=== PATIENT | female | born 1995 | race Caucasian/White ===

== ENCOUNTER 2018-08-29 19:21 | Emergency (ER) | payer OTHER ==
[2018-08-29] MEDS ORDERED: NS 1,000 ML IV ONE (19:34)
[2018-08-29] MEDS ORDERED: PROMETHAZINE HCL 25 MG/ML INJ IVP ONE (19:34)
--- NOTE | 2018-08-29 19:44 | EDPHY ---
H & P Stated Complaint: lower ABD pain-diarrhea Time Seen by Provider: 08/29/18 19:34 HPI/ROS: HPI: This is a 23-year-old female who presents with Chief Complaint: lower ABD pain-diarrhea Location: Lower abdominal Quality: Pain Duration: Since this morning Signs and Symptoms: no fever, no nausea, no vomiting, no hematemesis, no blood in stool, no abdominal bloating, + diarrhea, no back pain, no urinary symptoms, no vaginal bleeding/discharge, no indigestion, no chest pain, no shortness of breath Timing: Acute, intermittent episodes Severity: [id number] Context: Patient lives by herself, presents with sudden onset of nausea and diarrhea that started evening. She reports that it continued over the weekend and into today. She reports that she is having between 2-5 loose stools per day. This evening she started to developed some lower abdominal pain that is constant, nonradiating, moderate in severity. Her menstrual period is due in 1 and half weeks. She takes oral control pills. She reports decreased appetite today. Denies fever. No recent foreign travel, antibiotic use, concern for food borne illness. No history of ovarian cyst. Denies urinary symptoms. Modifying Factors: None Comment: ROS: A comprehensive 10 system review of systems is otherwise negative aside from elements mentioned in the history of present illness. MEDICAL/SURGICAL/SOCIAL HISTORY: Medical history: Generally healthy. Does not take any regular medications. Surgical history: Denies Social history: Nonsmoker. Family history noncontributory. CONSTITUTIONAL: Extremely well-appearing young adult white female, awake and alert, no obvious distress HEENT: Atraumatic and normocephalic, PERRL, EOMI. Nares patent; no rhinorrhea; no nasal mucosal edema. Tympanic membranes clear. Oropharynx clear, no exudate and moist pink mucosa. Airway patent. No lymphadenopathy. No meningismus. Cardiovascular: Normal S1/S2, regular rate, regular rhythm, without murmur rub or gallop. PULMONARY/CHEST: Symmetrical and nontender. Clear to auscultation bilaterally. Good air movement. No accessory muscle usage. ABDOMEN: Soft, nondistended, nontender, no rebound, no guarding, no peritoneal signs, no masses or organomegaly. No CVAT. EXTREMITIES: 2/2 pulses, strength 5/5, no deformities, no clubbing, no cyanosis or edema. NEUROLOGICAL: no focal neuro deficits. GCS 15. SKIN: Warm and dry, no erythema. no rash. Good capillary refill. Source: Patient Exam Limitations: No limitations - Personal History LMP (Females 10-55): 15-21 Days Ago Current Tetanus Diphtheria and Acellular Pertussis (TDAP): Yes - Medical/Surgical History Hx Asthma: No Hx Chronic Respiratory Disease: No Hx Diabetes: No Hx Cardiac Disease: No Hx Renal Disease: No Hx Cirrhosis: No Hx Alcoholism: No Hx HIV/AIDS: No Hx Splenectomy or Spleen Trauma: No Other PMH: denies - Social History Smoking Status: Never smoked Constitutional: Initial Vital Signs Temperature (C) 37 C 08/29/18 19:29 Heart Rate 63 08/29/18 19:29 Respiratory Rate 16 08/29/18 19:29 Blood Pressure 128/77 H 08/29/18 19:29 O2 Sat (%) 98 08/29/18 19:29 Allergies/Adverse Reactions: No Known Allergies Allergy (Unverified 08/29/18 19:28) Home Medications: Medication Instructions Recorded Bcp 08/29/18 Dicyclomine [Bentyl 10 MG (*)] 10 mg PO QID PRN #8 cap 08/29/18 Ondansetron Odt [Zofran Odt 4 mg 4 mg PO Q4 PRN #12 tab 08/29/18 (*)] Medical Decision Making ED Course/Re-evaluation: Vital signs reviewed and stable upon arrival. No systemic signs. IV access and laboratory studies ordered Given 1 L normal saline and IV promethazine 12.5 mg Abdomen is soft and nontender. Doubt surgical process and need for imaging. 1954: Notified by RN that Patient politely refused IV Phenergan. Labs reviewed. No signs of leukocytosis/anemia/platelet dysfunction/LEENA/ elevated LFTs/electrolyte imbalance/pancreatitis/. 2038: Initiated p.o. Trial. 2049: Urinalysis is negative. Given p.o. Bentyl 10 mg and p.o. Imodium 4 mg 2114: Reassessed patient who reports improvement in symptoms. Given work note per request. Given a prescription for Zofran. This patient was seen under the supervision of my secondary supervising physician. I evaluated care for this patient independently. Discussed this patient with Dr. Blackburn who did not see the patient. Differential Diagnosis: Abdominal pain in a female including but not limited to ovarian cyst, pelvic inflammatory disease, ovarian torsion, urinary tract infection, and appendicitis. - Data Points Laboratory Results: Laboratory Results 08/29/18 19:44 08/29/18 19:44 08/29/18 08/29/18 08/29/18 20:34 19:44 19:44 WBC RBC Hgb Hct MCV MCH MCHC RDW Plt Count MPV Neut % (Auto) Lymph % (Auto) [place] % (Auto) Eos % (Auto) Baso % (Auto) Nucleat RBC Rel Count Absolute Neuts (auto) Absolute Lymphs (auto) Absolute Monos (auto) Absolute Eos (auto) Absolute Basos (auto) Absolute Nucleated RBC Immature Gran % Immature Gran # Sodium 136 mEq/L mEq/L (135-145) Potassium 3.8 mEq/L mEq/L (3.5-5.2) Chloride 103 mEq/L mEq/L (97-110) Carbon Dioxide 25 mEq/l mEq/l (22-31) Anion Gap 8 mEq/L mEq/L (6-14) BUN 13 mg/dL mg/dL (7-23) Creatinine 0.7 mg/dL mg/dL (0.6-1.0) Estimated GFR > 60 Glucose 89 mg/dL mg/dL (70-100) Calcium 9.3 mg/dL mg/dL (8.5-10.4) Total Bilirubin 0.4 mg/dL mg/dL (0.1-1.4) Conjugated Bilirubin 0.1 mg/dL mg/dL (0.0-0.5) Unconjugated Bilirubin 0.3 mg/dL mg/dL (0.0-1.1) AST 22 IU/L IU/L (14-46) ALT 16 IU/L IU/L (9-52) Alkaline Phosphatase 37 IU/L L IU/L (38-126) Total Protein 6.9 g/dL g/dL (6.3-8.2) Albumin 4.1 g/dL g/dL (3.5-5.0) Lipase 105 IU/L IU/L (23-300) Beta HCG, Qual NEGATIVE Urine Color COLORLESS Urine Appearance CLEAR Urine pH 6.0 (5.0-7.5) Ur Specific [place] 1.003 (1.002-1.030) Urine Protein NEGATIVE (NEGATIVE) Urine Ketones NEGATIVE (NEGATIVE) Urine Blood NEGATIVE (NEGATIVE) Urine Nitrate NEGATIVE (NEGATIVE) Urine Bilirubin NEGATIVE (NEGATIVE) Urine Urobilinogen NEGATIVE EU EU (0.2-1.0) Ur Leukocyte Esterase NEGATIVE (NEGATIVE) Urine Glucose NEGATIVE (NEGATIVE) 08/29/18 19:44 WBC 5.16 10^3/uL 10^3/uL (3.80-9.50) RBC 4.12 10^6/uL L 10^6/uL (4.18-5.33) Hgb 13.1 g/dL g/dL (12.6-16.3) Hct 37.6 % L % (38.0-47.0) MCV 91.3 fL fL (81.5-99.8) MCH 31.8 pg pg (27.9-34.1) MCHC 34.8 g/dL g/dL (32.4-36.7) RDW 11.5 % % (11.5-15.2) Plt Count 264 10^3/uL 10^3/uL (150-400) MPV 9.1 fL fL (8.7-11.7) Neut % (Auto) 40.5 % % (39.3-74.2) Lymph % (Auto) 47.7 % H % (15.0-45.0) [place] % (Auto) 8.3 % % (4.5-13.0) Eos % (Auto) 2.7 % % (0.6-7.6) Baso % (Auto) 0.6 % % (0.3-1.7) Nucleat RBC Rel Count 0.0 % % (0.0-0.2) Absolute Neuts (auto) 2.09 10^3/uL 10^3/uL (1.70-6.50) Absolute Lymphs (auto) 2.46 10^3/uL 10^3/uL (1.00-3.00) Absolute Monos (auto) 0.43 10^3/uL 10^3/uL (0.30-0.80) Absolute Eos (auto) 0.14 10^3/uL 10^3/uL (0.03-0.40) Absolute Basos (auto) 0.03 10^3/uL 10^3/uL (0.02-0.10) Absolute Nucleated RBC 0.00 10^3/uL 10^3/uL (0-0.01) Immature Gran % 0.2 % % (0.0-1.1) Immature Gran # 0.01 10^3/uL 10^3/uL (0.00-0.10) Sodium Potassium Chloride Carbon Dioxide Anion Gap BUN Creatinine Estimated GFR Glucose Calcium Total Bilirubin Conjugated Bilirubin Unconjugated Bilirubin AST ALT Alkaline Phosphatase Total Protein Albumin Lipase Beta HCG, Qual Urine Color Urine Appearance Urine pH Ur Specific [place] Urine Protein Urine Ketones Urine Blood Urine Nitrate Urine Bilirubin Urine Urobilinogen Ur Leukocyte Esterase Urine Glucose Medications Given: Discontinued Medications Sodium Chloride (Ns) 1,000 mls @ 0 mls/hr IV EDNOW ONE; Wide Open PRN Reason: Protocol Stop: 08/29/18 19:35 Last Admin: 08/29/18 19:45 Dose: 1,000 mls Promethazine HCl (Phenergan) 12.5 mg IVP EDNOW ONE Stop: 08/29/18 19:35 Last Admin: 08/29/18 20:41 Dose: Not Given Departure - Departure Disposition: Home, Routine, Self-Care Clinical Impression: Gastroenteritis Condition: Good Instructions: Gastroenteritis (ED), Loperamide (By mouth) Additional Instructions: Consume a minimum of 8-10 glasses of water or electrolyte fluid replacement drinks that include Gatorade, Powerade, Pedialyte. Eat a bland diet for the next 48 hours and then slowly advance as tolerated. Take Zofran 1 tab every 4 hours as needed for nausea, vomiting. Take Bentyl every 6 hr as needed for GI distress. Take [id number] Imodium every 6 hr as needed for diarrhea. Return to the Emergency Room if symptoms do not resolve in the next 72 hours, you spike a fever > 102 F, or experience intractable abdominal pain/nausea/ vomiting. Referrals: TERRELL JEWELL [Primary Care Provider] - 3-4 days, if not improved Stand Alone Forms: Work Excuse Prescriptions: Dicyclomine [Bentyl 10 MG (*)] 10 mg PO QID PRN #8 cap PRN Reason: Gi Distress Ondansetron Odt [Zofran Odt 4 mg (*)] 4 mg PO Q4 PRN #12 tab PRN Reason: Nausea/Vomiting, Use 1st
[2018-08-29 20:14] LABS: PLATELET COUNT 264 10^3/uL (150-400)
[2018-08-29] MEDS ORDERED: DICYCLOMINE 10 MG CAP PO ONE (20:50)
[2018-08-29] MEDS ORDERED: LOPERAMIDE HCL 2 MG CAP PO ONE (20:50)
[2018-08-29 21:04] VITALS: BP 118/77
== END 2018-08-29 21:08 | disposition home or self-care (01) ==
DX: K52.9 Noninfective gastroenteritis and colitis, unspecified (principal); E86.9 Volume depletion, unspecified
CPT/HCPCS: J2550